=== PATIENT | male | born 1945 | race Caucasian/White ===

== ENCOUNTER → 2020-06-25 | Outpatient (CLI) | payer MEDICARE, OTHER ==
--- NOTE | 2020-06-25 11:00 | REP ---
INDICATION: ABNORMAL RESULTS OF LIVER FUNCTION STUDIES. COMPARISON: Right upper quadrant 07/30/2019. TECHNIQUE: Standard upper abdominal complete ultrasound and Doppler interrogation hepatic and portal vessels. FINDINGS: COMPLETE ABDOMINAL ULTRASOUND: The liver is homogeneous with diffuse fatty infiltration evident. No hepatic mass or intrahepatic biliary dilatation. There does appear to be some minor focal fat sparing near the gallbladder fossa which is the usual location for this phenomenon. No adjacent ascites. Gallbladder adequately filled there are some echogenic non shadowing foci representing polyps seen on previous study 07/30/2019. These appear unchanged in size. No gallbladder wall thickening, pericholecystic fluid, shadowing stone or right upper quadrant tenderness. Common duct is 2.8 mm without a visible stone. Pancreas is obscured by gas shadowing. The right kidney is 10.2 x 4.3 x 5 cm on the left is 10.4 x 4.7 x 5.6. Neither shows a stone, mass or cyst. No perinephric fluid. The spleen is 9.2 x 8.7 x 3.9 cm without focal mass or adjacent fluid. Normal color flow in the spleen. No generalized ascites. HEPATIC AND PORTAL DOPPLER ULTRASOUND: The main portal vein is diameter of 10.3 mm and is normal common duct is 2.8 mm without dilatation or stone. There is no liver mass, gallstone or ascites. Doppler flow in the main hepatic artery is 95.4 cm/S. Main portal vein shows flow into the liver with velocity 39.2 cm/S. Flow velocity in 3 portal veins is 37.9 cm/S, 21.9 cm/S and 17.7 cm/S. The SMV and splenic vein near the confluence are obscured by gas shadowing. Doppler flow in the splenic vein near the hilum is hepatopetal and is 27.6 cm/S. There is some portalization of the hepatic veins. IMPRESSION: 1. Diffuse fatty infiltration of the liver with some focal fat sparing near the gallbladder fossa. No intrahepatic mass, biliary dilatation or ascites. 1. Gallbladder shows couple of stable small polyps without other findings. Common duct is 2.8 mm. 2. Kidneys spleen were unremarkable. 3. Pancreas obscured by gas shadowing. 4. Of flow into the liver via the portal vein and splenic vein flow towards the liver. Main portal vein diameter 10.3 cm, normal. Some portalization of hepatic vein flow. <Electronically signed by Nelson Hernandez > 06/25/20 [id number]
== END ==
LOC: M RAD 09:28
PROVIDERS: ATTEND Internal Medicine Gastroenterology
DX: R94.5 Abnormal results of liver function studies (principal)

== ENCOUNTER → 2020-07-02 | Outpatient (CLI) | payer MEDICARE, OTHER ==
[2020-07-02 12:34] LABS: ALT/SGPT 40 U/L (12-78); BILIRUBIN,DIRECT 0.3 MG/DL (0.0-0.2); BILIRUBIN,TOTAL 1.6 MG/DL (0.2-1.0)
[2020-07-02 12:43] LABS: HEPATITIS B SURFACE ANTIBODY NEGATIVE (POSITIVE)
[2020-07-02 12:54] LABS: HEPATITIS B SURFACE ANTIGEN NEGATIVE (NEGATIVE)
[2020-07-02 13:22] LABS: HEPATITIS C VIRUS ABY INDEX < 0.0 INDEX (<0.8)
[2020-07-05 06:08] LABS: ANTI-MITOCHONDRIAL ANTIBODY <20.0 Units (0.0-20.0); ANTI-SMOOTH MUSCLE ANTIBODY 4 Units (0-19); ANTINUCLEAR ANTIBODIES DIRECT Negative (Negative); HEPATITIS A IgG TOTAL Negative (Negative); LIVER-KIDNEY MICROSOMAL ABY <20.1 Units (0.0-20.0)
== END ==
LOC: M LAB 10:55
PROVIDERS: ATTEND Internal Medicine Gastroenterology
DX: R94.5 Abnormal results of liver function studies (principal)

== ENCOUNTER → 2022-05-26 | Outpatient (REF) | payer MEDICARE, OTHER | LOC: M LAB REF 17:26 | PROVIDERS: ATTEND Ophthalmology | DX: D23.121 Other benign neoplasm of skin of left upper eyelid, including canthus (principal) ==